=== PATIENT | female | born 1995 | race Caucasian/White ===

== ENCOUNTER 2022-04-18 22:21 | Emergency (ER) | payer SELFPAY ==
[~2022-04-18] VITALS: Ht 170.2 cm; Wt 84.1 kg
[2022-04-19 00:38] VITALS: BP 114/63
== END 2022-04-19 00:39 | disposition home or self-care (01) ==
LOC: M ED 22:21
DX: J02.9 Acute pharyngitis, unspecified (principal); B34.8 Other viral infections of unspecified site; Z77.098 Contact with and (suspected) exposure to other hazardous, chiefly nonmedicinal, chemicals

== ENCOUNTER → 2023-03-09 | Outpatient (CLI) | payer OTHER ==
[2023-03-09 14:13] LABS: FOLLICLE STIMULATING HORMONE 3.2 mIU/ML; LUTEINIZING HORMONE 2.7 mIU/ML; THYROID STIMULATING HORMONE 1.617 uIU/ML (0.55-4.78)
[2023-03-09 14:14] LABS: FREE T4 0.99 NG/DL (0.89-1.76); PROGESTERONE 6.57 NG/ML; PROLACTIN 12.35 NG/ML
== END ==
LOC: M PLALAB 11:35
PROVIDERS: ATTEND Specialist
DX: N92.6 Irregular menstruation, unspecified (principal)

== ENCOUNTER → 2023-06-08 | Outpatient (CLI) | payer OTHER, SELFPAY ==
[~2023-06-08] MED LIST: ISOVUE-370 76% 100ML VIAL As Ordered ONE
== END ==
LOC: M RADPRO 11:45
PROVIDERS: ATTEND Specialist
DX: N97.9 Female infertility, unspecified (principal)
CPT/HCPCS: 58340; 74740; Q9967